=== PATIENT | male | born 1970 | race Two or more races ===

== ENCOUNTER → 2024-10-23 | Emergency (ER) | payer OTHER ==
[~2024-10-23] VITALS: Ht 182.9 cm; Wt 181.4 kg
[~2024-10-23] MED LIST: IPRATROPIUM BROMIDE 0.5 MG/2.5 ML AMPUL.NEB IH SCH; LEVALBUTEROL HCL 1.25 MG/3 ML SOLUTION IH SCH; MAGNESIUM SULFATE IN WATER 2 GM/50 ML PIGGYBAG IV ONE; METHYLPREDNISOLONE SOD SUCC 125 MG VIAL IV ONE
[2024-10-23 18:21] LABS: BASO % 0.6 % (0.1-1.2); EOS # 0.07 (0.04-0.54); EOS % 0.6 % (0.7-7.0); HEMATOCRIT 44.2 % (40.1-51.0); HEMOGLOBIN 14.7 g/dL (13.7-17.5); LYMPH # 0.92 (1.18-3.74); LYMPH % 7.6 % (19.3-53.1); MEAN CORPUSCULAR HEMOGLOBIN 29.5 pg (25.6-32.2); MONO # 1.12 (0.24-0.82); MONO % 9.2 % (4.7-12.5); NEUT # 9.91 (1.56-6.13); NEUT % 81.6 % (34.0-71.1); PLATELET COUNT 232 K/uL (163-369); RED BLOOD COUNT 4.99 M/uL (4.63-6.08); RED CELL DISTRIBUTION WIDTH 12.7 % (11.6-14.4)
[2024-10-23 18:39] LABS: INR 1.03; PARTIAL THROMBOPLASTIN TIME 29.1 SECONDS (22.0-34.0); PROTHROMBIN TIME 11.2 SECONDS (9.0-11.5)
[2024-10-23 18:48] LABS: ALBUMIN 3.7 gm/dL (3.4-5.0); BILIRUBIN TOTAL 0.36 mg/dL (0.3-1.2); CALCIUM 9.5 mg/dL (8.5-10.1); CREATININE SERUM 1.09 mg/dL (0.70-1.30); GFR 70.23; GLOBULINA 2.9 G/DL (2.4-3.5); POTASSIUM 4.26 mEq/L (3.5-5.1); TOTAL PROTEIN 6.6 gm/dL (6.4-8.2)
[2024-10-23 20:03] LABS: INFLUENZA A AG NEGATIVE (NEGATIVE)
[2024-10-23 20:06] LABS: COVID-19 AG NEGATIVE (NEGATIVE)
[2024-10-24 00:36] LABS: ABG PH 7.443 (7.35-7.45); ABG pCO2 34.9 mmHg (35-45)
[2024-10-24 00:37] LABS: ABG PO2 59.3 mmHg (80-100); BASE EXCESS -0.2 mmol/l; BICARBONATE 23.3 mmol/l (23-25); SaO2 91.4 %; Tco2 24.4 mmol/l
[2024-10-24 00:38] LABS: allen test SATISFACTORY; mode ROOM AIR; o2 21 %; puncture site RADIAL LEFT
== END | disposition left against medical advice (07) ==
LOC: ER 16:19
PROVIDERS: General Practice
DX: R06.02 Shortness of breath (principal); J44.9 Chronic obstructive pulmonary disease, unspecified; Z20.822 Contact with and (suspected) exposure to COVID-19; G47.30 Sleep apnea, unspecified; Z88.5 Allergy status to narcotic agent; Z87.09 Personal history of other diseases of the respiratory system
CPT/HCPCS: 36415; 71045; 82803; 94640; 96365; 99283; J3475